=== PATIENT | female | born 1985 | race African-American/Black ===

== ENCOUNTER 2017-04-10 08:15 | Emergency (ER) | payer BC, SELFPAY ==
[2017-04-10 10:02] LABS: Bilirubin Small (Negative); Blood, Urine Negative (Negative); Clarity CLEAR (Clear); Glucose, Urine (Dipstick) Negative (Negative); Leukocyte Negative (Negative); Nitrite Negative (Negative); Protein, Urine (Dipstick) Negative (Neg-Trace); Specific Gravity, Urine 1.034 (1.002-1.036); Urobilinogen 0.2 mg/dL (0.2-1.0)
[2017-04-10 10:08] LABS: Pregnancy Test - Urine (BHCG) Negative (Negative); Pregu Control Background? CLEAR/WHITE (CLR/WHITE); Pregu Control Bar Appear? YES (CONTROL BAR); Specific Gravity 1.034 (1.002-1.036)
== END 2017-04-10 10:54 | disposition home or self-care (01) ==
LOC: ERS 08:15
DX: N93.8 Other specified abnormal uterine and vaginal bleeding (principal); F32.9 Major depressive disorder, single episode, unspecified; F17.210 Nicotine dependence, cigarettes, uncomplicated
CPT/HCPCS: 81003; 81025; 87086; 99406

== ENCOUNTER 2018-01-11 16:13 | Emergency (ER) | payer SELFPAY ==
[~2018-01-11 16:13] MED LIST: ISOVUE-370 76%-LOCM 1 ML ONE; Iopamidol 370 76% 50 ML VIAL FS ONE
[2018-01-11 16:35] LABS: Bilirubin Negative (Negative); Blood, Urine Negative (Negative); Clarity CLEAR (Clear); Glucose, Urine (Dipstick) Negative (Negative); Leukocyte Trace (Negative); Nitrite Negative (Negative); Protein, Urine (Dipstick) Negative (Neg-Trace); Specific Gravity, Urine 1.014 (1.002-1.036); Urobilinogen 0.2 mg/dL (0.2-1.0); pH, Urine 7.5 (5.0-9.0)
[2018-01-11 16:37] LABS: Pregnancy Test - Urine (BHCG) Negative (Negative); Pregu Control Background? CLEAR/WHITE (CLR/WHITE); Pregu Control Bar Appear? YES (CONTROL BAR); Specific Gravity 1.014 (1.002-1.036)
[2018-01-11 16:40] LABS: Bacteria/HPF None Seen HPF (None Seen); Hyaline Casts/LPF 0-3 HYALINE CAST LPF (0-3 Hyaline); RBC/HPF 0-3 HPF (0-3); Squamous Epithelial None Seen HPF (0-3)
[2018-01-11 16:40] LABS: #Basophils 0.1 thou/uL (0.0-0.2); #Eosinphils 0.1 thou/uL (0.0-0.7); #Lymphocytes 3.3 thou/uL (1.20-3.40); #Monocytes 0.6 thou/uL (0.11-0.59); #Neutrophils 3.7 thou/uL (1.40-6.50); %Basophils 1.5 % (0.0-1.0); %Eosinophils 1.8 % (0.0-10.0); %Lymphocytes 41.9 % (21.0-51.0); %Monocytes 7.6 % (0.0-10.0); %Neutrophils 47.3 % (42.0-75.0); Hemoglobin 13.3 g/dL (12.0-16.0); Mean Corpuscular HGB CONC 33.2 g/dL (32.0-36.0); Mean Corpuscular Hemoglobin 31.4 pg (27.0-31.0); Mean Corpuscular Volume 94.7 fL (78.0-98.0); Mean Platelet Volume 8.1 fL (7.4-10.4); Platelet Count 264 thou/uL (130-400); RBC Distribution Width 11.9 % (11.5-14.5); Red Blood Cell (RBC) Count 4.21 mill/uL (4.20-5.40); White Blood Cell (WBC) Count 7.8 thou/uL (4.8-10.8)
[2018-01-11 17:05] LABS: ALT (SGPT) 11 U/L (8-55); AST (SGOT) 12 U/L (5-34); Albumin 4.2 g/dL (3.5-5.0); Alkaline Phosphatase 69 U/L (40-150); Anion Gap 7 mmol/L (10-20); BUN (Urea Nitrogen) 9 mg/dL (7.0-18.7); Bilirubin, Total 0.4 mg/dL (0.2-1.2); Calc. Creatinine Clearance 0 mL/min (70-130); Calcium 9.3 mg/dL (7.8-10.44); Carbon Dioxide 29 mmol/L (22-29); Chloride 106 mmol/L (98-107); Estimated GFR-MDRD Greater than 90; Globulin 2.7 g/dL (2.4-3.5); Glucose 93 mg/dL (70-105); Lipase 41 U/L (8-78); Potassium 4.2 mmol/L (3.5-5.1); Protein, Total 6.9 g/dL (6.0-8.3); Sodium 138 mmol/L (136-145)
[2018-01-11] MEDS ORDERED: Morphine 4 MG/ML VIAL ONE (18:56)
[2018-01-11] MEDS ORDERED: Ondansetron HCl/PF 4 MG/2 ML Vial ONE (18:56)
--- NOTE | 2018-01-11 20:19 | CT ---
CT ABDOMEN WITH CONTRAST CT PELVIS WITH CONTRAST 01/11/18 HISTORY: Paraumbilical abdominal pain radiating to the right lower quadrant times one week. Nausea, vomiting and diarrhea. COMPARISON: None. FINDINGS: ABDOMEN CT: Lung bases are clear. Normal heart size. No pericardial effusion. The descending thoracic aorta and a bdominal aorta have normal caliber. No periaortic fat stranding. The liver, spleen pancreas and adrenal glands have appropriate enhancement. Surgically absent gallbladder. No gastrohepatic, retrocrural, or periportal lymphadenopathy. Symmetric enhancement of the kidneys. Bilaterally, no obstructive uropathy. Gastric mucosa, duodenum and multiple normal caliber small bowel loops are identified. Ileocecal junc tion is normal. Normal caliber contrast filled appendix. Contrast and fecal material predominantly in the right hemicolon. Mid to distal transverse colon, left hemicolon do not demonstrate any obvious a bnormality. Occasional diverticulum is noted. No obvious inflammatory change. Limited evaluation of t he mucosa due to lack of inadequate distention. No mesenteric mass, lymphadenopathy, free air or free fluid. PELVIC CT: There are asymmetrically increased vessels in the left adnexa. Correlate for left ovarian venous puneet estion. The left and right ovaries have an overall symmetric attenuation. The uterus is unremarkable. No significant free fluid in the pelvis. Urinary bladder is unremarkable. No lytic or blastic lesions in the osseous structures. IMPRESSION: 1. Normal caliber appendix. 2. Asymmetric prominent veins in the left adnexa, associated with left ovarian vein. Correlate f or venous congestion syndrome. Grossly the left and right ovary have symmetric attenuation. POS: [facility]
--- NOTE | 2018-01-11 22:19 | ULT ---
TRANSABDOMINAL AND TRANSVAGINAL PELVIC ULTRASOUND: 01/11/18 INDICATION: History of pelvic pain. TECHNIQUE: Barros scale, color doppler vascular duplex with spectral analysis was performed. Comparisons are made with the CT of the abdomen and pelvis dated 01/11/18. FINDINGS: Uterus measures 7.2 x 3.3 x 5.6 cm. The endometrial stripe measures 5.3 mm. There are prominent parau terine varicosities. The right ovary measures 3.2 x 1.9 x 2 cm. There is a 1.3 cm cyst within the right ovary. There is no rmal flow to the right ovary. Left ovary measures 2.5 x 2.2 x 2.2 cm. There is a 1.6 cm cyst within the left ovary. There is normal flow to the left ovary. There is mild free fluid in the pelvis. IMPRESSION: 1. Slight prominence of the parauterine vessels which can be seen with entities such as pelvic c ongestion syndrome. 2. Bilateral follicular cysts. 3. Mild free fluid in the pelvis. POS: [facility]
== END 2018-01-11 22:23 | disposition home or self-care (01) ==
LOC: ERS 16:13
DX: N94.89 Other specified conditions associated with female genital organs and menstrual cycle (principal); Z71.6 Tobacco abuse counseling; F32.9 Major depressive disorder, single episode, unspecified; F17.210 Nicotine dependence, cigarettes, uncomplicated
CPT/HCPCS: 36415; 74177; 76856; 80053; 81003; 81015; 81025; 83690; 85025; 87086; 96361; 96374; 96375; 99406; J2270; J2405

== ENCOUNTER 2018-02-18 19:07 | Emergency (ER) | payer SELFPAY ==
[2018-02-18 20:26] LABS: #Basophils 0.1 thou/uL (0.0-0.2); #Eosinphils 0.2 thou/uL (0.0-0.7); #Lymphocytes 4.1 thou/uL (1.20-3.40); #Monocytes 0.8 thou/uL (0.11-0.59); #Neutrophils 4.4 thou/uL (1.40-6.50); %Basophils 1.5 % (0.0-1.0); %Eosinophils 2.1 % (0.0-10.0); %Lymphocytes 42.3 % (21.0-51.0); %Monocytes 8.1 % (0.0-10.0); %Neutrophils 46.1 % (42.0-75.0); Hemoglobin 14.2 g/dL (12.0-16.0); Mean Corpuscular HGB CONC 33.7 g/dL (32.0-36.0); Mean Corpuscular Hemoglobin 31.5 pg (27.0-31.0); Mean Corpuscular Volume 93.5 fL (78.0-98.0); Mean Platelet Volume 8.2 fL (7.4-10.4); Platelet Count 279 thou/uL (130-400); RBC Distribution Width 12.3 % (11.5-14.5); Red Blood Cell (RBC) Count 4.51 mill/uL (4.20-5.40); White Blood Cell (WBC) Count 9.6 thou/uL (4.8-10.8)
--- NOTE | 2018-02-18 20:45 | RAD ---
FRONTAL RADIOGRAPH CHEST: 02/18/18 COMPARISON: None. HISTORY: Right sided rib pain radiating to the right arm with right arm numbness. FINDINGS: There is no pneumothorax, pleural fluid, focal consolidation, or alveolar edema. Heart and mediastina l contours within normal limits. IMPRESSION: No acute findings. POS: [facility]
[2018-02-18 20:46] LABS: ALT (SGPT) 17 U/L (8-55); AST (SGOT) 14 U/L (5-34); Albumin 4.5 g/dL (3.5-5.0); Alkaline Phosphatase 78 U/L (40-150); Anion Gap 12 mmol/L (10-20); BUN (Urea Nitrogen) 9 mg/dL (7.0-18.7); Bilirubin, Total 0.3 mg/dL (0.2-1.2); Calc. Creatinine Clearance 0 mL/min (70-130); Calcium 9.6 mg/dL (7.8-10.44); Carbon Dioxide 25 mmol/L (22-29); Chloride 105 mmol/L (98-107); Estimated GFR-MDRD Greater than 90; Globulin 3.2 g/dL (2.4-3.5); Glucose 74 mg/dL (70-105); Protein, Total 7.7 g/dL (6.0-8.3); Sodium 138 mmol/L (136-145)
[2018-02-18 22:00] LABS: Bilirubin Negative (Negative); Blood, Urine Negative (Negative); Clarity CLEAR (Clear); Glucose, Urine (Dipstick) Negative (Negative); Leukocyte Small (Negative); Nitrite Negative (Negative); Protein, Urine (Dipstick) Negative (Neg-Trace); Specific Gravity, Urine 1.016 (1.002-1.036); Urobilinogen 0.2 mg/dL (0.2-1.0)
[2018-02-18 22:05] LABS: Pathc Cast-AUWi Flag 0.14 (0-2.49)
[2018-02-18 22:08] LABS: Pregnancy Test - Urine (BHCG) Negative (Negative); Pregu Control Background? CLEAR/WHITE (CLR/WHITE); Pregu Control Bar Appear? YES (CONTROL BAR); Specific Gravity 1.016 (1.002-1.036)
[2018-02-18 22:17] LABS: Bacteria/HPF None Seen HPF (None Seen); Hyaline Casts/LPF 0-3 HYALINE CAST LPF (0-3 Hyaline); RBC/HPF 0-3 HPF (0-3); Squamous Epithelial 0-3 HPF (0-3); WBC/HPF 0-3 HPF (0-3)
== END 2018-02-18 22:49 | disposition home or self-care (01) ==
LOC: ERS 19:07
DX: M79.10 Myalgia, unspecified site (principal); R59.0 Localized enlarged lymph nodes; B34.9 Viral infection, unspecified; D64.9 Anemia, unspecified; F32.9 Major depressive disorder, single episode, unspecified; F17.210 Nicotine dependence, cigarettes, uncomplicated
CPT/HCPCS: 36415; 71045; 80053; 81003; 81015; 81025; 85025

== ENCOUNTER 2018-07-01 20:33 | Emergency (ER) | payer SELFPAY ==
[2018-07-01 22:00] LABS: Bilirubin Negative (Negative); Blood, Urine Negative (Negative); Clarity CLEAR (Clear); Glucose, Urine (Dipstick) Negative (Negative); Leukocyte Small (Negative); Nitrite Negative (Negative); Protein, Urine (Dipstick) Negative (Neg-Trace); Specific Gravity, Urine 1.027 (1.002-1.036)
[2018-07-01 22:01] LABS: #Basophils 0.1 thou/uL (0.0-0.2); #Lymphocytes 3.1 thou/uL (1.20-3.40); #Monocytes 1.1 thou/uL (0.11-0.59); %Basophils 0.9 % (0.0-1.0); %Eosinophils 0.4 % (0.0-10.0); %Lymphocytes 25.3 % (21.0-51.0); %Monocytes 8.6 % (0.0-10.0); %Neutrophils 64.8 % (42.0-75.0); Hemoglobin 12.2 g/dL (12.0-16.0); Mean Corpuscular HGB CONC 33.6 g/dL (32.0-36.0); Mean Corpuscular Hemoglobin 31.3 pg (27.0-31.0); Mean Corpuscular Volume 93.2 fL (78.0-98.0); Mean Platelet Volume 8.2 fL (7.4-10.4); Platelet Count 239 thou/uL (130-400); RBC Distribution Width 11.8 % (11.5-14.5); White Blood Cell (WBC) Count 12.4 thou/uL (4.8-10.8)
[2018-07-01 22:04] LABS: Bacteria/HPF None Seen HPF (None Seen); Pathc Cast-AUWi Flag 0.27 (0-2.49); Squamous Epithelial 0-3 HPF (0-3); WBC/HPF 21-50 HPF (0-3)
[2018-07-01 22:06] LABS: Pregnancy Test - Urine (BHCG) POSITIVE (Negative); Pregu Control Background? CLEAR/WHITE (CLR/WHITE); Pregu Control Bar Appear? YES (CONTROL BAR); Specific Gravity 1.027 (1.002-1.036)
[2018-07-01 22:17] LABS: Hyaline Casts/LPF NONE SEEN LPF (0-3 Hyaline)
[2018-07-01 22:22] LABS: ALT (SGPT) 12 U/L (8-55); AST (SGOT) 13 U/L (5-34); Albumin 4.3 g/dL (3.5-5.0); Alkaline Phosphatase 64 U/L (40-150); Anion Gap 11 mmol/L (10-20); BUN (Urea Nitrogen) 6 mg/dL (7.0-18.7); Bilirubin, Total 0.4 mg/dL (0.2-1.2); Calc. Creatinine Clearance 0 mL/min (70-130); Calcium 9.5 mg/dL (7.8-10.44); Carbon Dioxide 25 mmol/L (22-29); Chloride 104 mmol/L (98-107); Estimated GFR-MDRD Greater than 90; Globulin 2.7 g/dL (2.4-3.5); Glucose 80 mg/dL (70-105); Lipase 16 U/L (8-78); Potassium 3.5 mmol/L (3.5-5.1); Sodium 136 mmol/L (136-145)
[2018-07-02] MEDS ORDERED: Ondansetron ODT 8 MG TAB ONE (01:45)
--- NOTE | 2018-07-02 07:34 | ULT ---
PRELIMINARY REPORT: US First Trimester, Transabdominal EXAM DATE/TIME: 07/02/2018 12:05 AM CLINICAL HISTORY: 32 years old, female; Pain and signs and symptoms; Lmp or gestational age (in weeks): 7w0d; Antepartum complications; Other: Rlq pain while vomiting; complicated by abdominal or pelvic pain; Right lower quadrant; First trimester; ; Patient HX: Rlq pain while vomiting, hematemesis, diarrhea, hot flashes, chills TECHNIQUE: Imaging protocol: Real-time transabdominal obstetrical ultrasound of the maternal pelvis and a first trimester , less than 14 weeks 0 days, with image documentation. COMPARISON: No relevant prior studies available. FINDINGS: GESTATION: Gestation: Single intrauterine gestational sac with pole and a yolk sac. Heart rate: The heart rate 124 beats per minute. Placenta: Unremarkable. No subchorionic bleed. Amniotic fluid: Amniotic and chorionic fluid are normal for gestational age. BIOMETRY: Estimated gestational age: [place]-rump length is 8 mm consistent with 6 weeks 5 days gestational age. Estimated due date: WINNIE is 02/18/2019 MATERNAL: Uterus: Unremarkable. Cervix: Unremarkable. Ovaries: Right ovary measures 2.2 x 1.7 x 2.3 cm and the left or right measures 2.9 x 2.1 x 1.9 cm. . Intraperitoneal: No intraperitoneal free fluid. Appendix: The appendix was not visualized. IMPRESSION: Early live IUP with no complication. Thank you for allowing us to participate in the care of your patient. Dictated and Authenticated by: Oksana Hoffman MD 07/02/2018 1:28 AM Central Time ([place] & [place]) FINAL REPORT US Pelvic W Doppler History: [Pelvic pain] Comparison: Pelvic ultrasound 2018 Findings: There is a single viable intrauterine . Impression: Findings and impression are concordant with the preliminary report. Transcribed Date/Time: 07/02/2018 8:30 AM
== END 2018-07-02 01:55 | disposition home or self-care (01) ==
LOC: ERS 20:33
DX: O21.9 Vomiting of pregnancy, unspecified (principal); O99.89 Other specified diseases and conditions complicating pregnancy, childbirth and the puerperium; O99.341 Other mental disorders complicating pregnancy, first trimester; F32.9 Major depressive disorder, single episode, unspecified; Z87.891 Personal history of nicotine dependence; Z3A.01 Less than 8 weeks gestation of pregnancy
CPT/HCPCS: 36415; 76856; 80053; 81003; 81015; 81025; 83690; 84702; 85025; 87086; 93976

== ENCOUNTER 2018-09-19 00:13 | Emergency (ER) | payer MEDICAID ==
[2018-09-19] MEDS ORDERED: Metoclopramide HCl 10 MG/2 ML VIAL ONE (00:37)
[2018-09-19] MEDS ORDERED: Acetaminophen 500 MG TAB ONE (00:37)
[2018-09-19] MEDS ORDERED: diphenhydrAMINE 50 MG/ML VIAL ONE (00:37)
== END 2018-09-19 02:21 | disposition home or self-care (01) ==
LOC: ERS 00:13
DX: O99.352 Diseases of the nervous system complicating pregnancy, second trimester (principal); G43.909 Migraine, unspecified, not intractable, without status migrainosus; O99.342 Other mental disorders complicating pregnancy, second trimester; F32.9 Major depressive disorder, single episode, unspecified; O99.012 Anemia complicating pregnancy, second trimester; Z3A.18 18 weeks gestation of pregnancy; Z87.891 Personal history of nicotine dependence
CPT/HCPCS: 96361; 96365; 96375; J1200; J2765

== ENCOUNTER 2018-10-16 17:48 | Day surgery (SDC) | payer MEDICAID, OTHER ==
[2018-10-16 18:22] VITALS: BP 126/68; TEMP 98.7; BMI 28.9
[2018-10-16 19:50] LABS: ALT (SGPT) 16 U/L (8-55); AST (SGOT) 13 U/L (5-34); Albumin 3.5 g/dL (3.5-5.0); Alkaline Phosphatase 76 U/L (40-150); Anion Gap 11 mmol/L (10-20); BUN (Urea Nitrogen) 5 mg/dL (7.0-18.7); Bilirubin, Total 0.2 mg/dL (0.2-1.2); Calc. Creatinine Clearance 197 mL/min (70-130); Calcium 9.1 mg/dL (7.8-10.44); Carbon Dioxide 24 mmol/L (22-29); Chloride 107 mmol/L (98-107); Estimated GFR-MDRD Greater than 90; Globulin 2.8 g/dL (2.4-3.5); Glucose 62 mg/dL (70-105); Potassium 3.7 mmol/L (3.5-5.1); Protein, Total 6.3 g/dL (6.0-8.3); Sodium 138 mmol/L (136-145)
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
[2018-10-16] MEDS ORDERED: hydrALAZINE 20 MG/ML VIAL SLOW IVP PRN (20:16)
== END 2018-10-16 20:18 | disposition home or self-care (01) ==
LOC: L&D/OP 17:48
PROVIDERS: ATTEND Obstetrics & Gynecology
DX: O99.89 Other specified diseases and conditions complicating pregnancy, childbirth and the puerperium (principal); R10.11 Right upper quadrant pain; R20.2 Paresthesia of skin; R06.02 Shortness of breath; R42 Dizziness and giddiness; Z87.891 Personal history of nicotine dependence; Z3A.21 21 weeks gestation of pregnancy; W17.89XA Other fall from one level to another, initial encounter
CPT/HCPCS: 36415; 80053; 99282

== ENCOUNTER 2018-12-20 14:56 | Day surgery (SDC) | payer OTHER ==
[2018-12-20 15:41] VITALS: BMI 31.3
[2018-12-20] MEDS ORDERED: hydrALAZINE 20 MG/ML VIAL SLOW IVP PRN (17:47)
[2018-12-20 18:27] LABS: Bacteria/HPF None Seen HPF (None Seen); Bilirubin Negative (Negative); Blood, Urine Negative (Negative); Clarity Clear (Clear); Glucose, Urine (Dipstick) Normal (Negative); Leukocyte Negative Leu/uL (Negative); Nitrite Negative (Negative); Protein, Urine (Dipstick) Negative (Neg-Trace); RBC/HPF None Seen HPF (0-3); Squamous Epithelial 0-3 HPF (0-3); Urobilinogen Normal mg/dL (Less than 2); WBC/HPF 0-3 HPF (0-3)
[2018-12-20 18:55] LABS: FFN Internal QC Analyzer PASS (PASS); FFN Internal QC Cassette PASS (PASS); Fetal Fibronectin Negative (Negative)
--- NOTE | 2018-12-21 00:24 | PRG ---
DATE OF SERVICE: 12/20/2018 PRIMARY OB: Jenny Morales DO CHIEF COMPLAINT: Pelvic pains. HISTORY OF PRESENT ILLNESS: The patient is a 32-year-old, G7, P4 female with an intrauterine at 31 weeks and a day, who is presenting to Labor and Delivery with vague pelvic pains, back pain and feeling a bit under the weather. She reports nausea, pelvic pain associated with movement activity, crampy menstrual-like pain that she has been having since yesterday. She denies leakage of fluid or vaginal bleeding. She denies urinary urgency or frequency. She denies intercourse in the last several days. She denies any recent illness, fever, any recent headaches, or chest pain. She denies any new rashes, though she reports swelling in her armpits bilaterally with leakage of fluid on her left side. PAST MEDICAL HISTORY: Migraines, anxiety and depression. PAST SURGICAL HISTORY: Cholecystectomy. ALLERGIES: NO KNOWN DRUG ALLERGIES. SOCIAL HISTORY: Denies drug or alcohol use. Positive for tobacco use. OB LABS: Unavailable at time of dictation. REVIEW OF SYSTEMS: Per HPI. PHYSICAL EXAMINATION: VITAL SIGNS: Blood pressure 123/75, heart rate of 76, respiratory rate of 18, temperature 98.6. GENERAL: She appears to be in no acute distress. She is alert, oriented, cooperative, and pleasant to interact with. HEAD: Normocephalic, atraumatic. LUNGS: Clear to auscultation bilaterally. HEART: Has regular rate and rhythm. ABDOMEN: Gravid. She does have some tenderness to palpation with deviation of the uterus into her lower pelvis. EXTREMITIES: Nontender, nonedematous. GENITALIA: Vulva is without masses, lesions, or erythema. Vagina is moist. Cervix is visibly closed. fibronectin and VPIII are collected. Inspection of her axilla, she has some palpable swelling. There is no erythema. She has some warmth to the area, but nothing could be expressed. No pustular or ulcerative lesions. On the right side, the patient does have a small, a centimeter to centimeter and a half sized hypermelanotic area reminiscent of areola. The patient has no other findings like this along the mammary line. Cervical exam, cervix is closed, thick and high. heart tracing shows a baseline in the 140s with moderate long-term variability, positive 15 x 15 accelerations, no decelerations. No contractions visible on the tocometer. LABORATORY DATA: fibronectin is negative. Urinalysis negative for protein, bacteria, leukocyte esterase, or nitrite. VPIII negative for Trichomonas, Gardnerella, and yeast/Luann. ASSESSMENT AND PLAN: The patient is a 32-year-old female presenting with multiple complaints. No evidence of labor at this time, or urinary tract infection or vaginal infection. Of note, the patient does have a history of Trichomonas in October of this year that looks to be cleared. The patient's swelling in her axilla did not show any signs of infection. This may be ectopic mammary tissue that is responding and reacting to hormonal changes secondary to the . The patient has been counseled how to take Tylenol on a regular basis for better pain relief. Fetus has a reactive NST. The patient has been given labor precautions and has been instructed to follow up with her primary OB as scheduled, which will be in the middle of this next week. Job ID: [id number]
== END 2018-12-20 19:35 | disposition home or self-care (01) ==
LOC: L&D/OP 14:56
PROVIDERS: ATTEND Obstetrics & Gynecology
DX: O99.89 Other specified diseases and conditions complicating pregnancy, childbirth and the puerperium (principal); R10.2 Pelvic and perineal pain; M54.9 Dorsalgia, unspecified; O99.343 Other mental disorders complicating pregnancy, third trimester; F41.9 Anxiety disorder, unspecified; F32.9 Major depressive disorder, single episode, unspecified; O99.353 Diseases of the nervous system complicating pregnancy, third trimester; G43.909 Migraine, unspecified, not intractable, without status migrainosus; Z3A.31 31 weeks gestation of pregnancy; Z79.899 Other long term (current) drug therapy
CPT/HCPCS: 51701; 81001; 82731; 87480; 87510; 87660; 99285

== ENCOUNTER 2019-02-04 18:22 | Day surgery (SDC) | payer OTHER ==
[2019-02-04 19:32] VITALS: BP 130/79; TEMP 99.2; BMI 32.6
[2019-02-04] MEDS ORDERED: hydrALAZINE 20 MG/ML VIAL SLOW IVP PRN (19:44)
--- NOTE | 2019-02-04 20:07 | HP ---
LOCATION: Antepartum bed 2. TIME OF EVALUATION: 1945. REASON FOR EVALUATION: Contractions at early term. HISTORY OF PRESENT ILLNESS: In brief, this is a 33-year-old, G7, P4, at 37 weeks and 5 days with gestational diabetes (A2), on metformin, here for contractions about every 3 to 4 minutes. She denies rupture of membranes or vaginal bleeding. She denies any other symptoms. REVIEW OF SYSTEMS: Complete review of systems was checked and is otherwise negative unless specified in the HPI. PAST MEDICAL HISTORY: Negative. PAST OBSTETRICAL HISTORY: Vaginal births in the past and she has A2 diabetes this . MEDICATIONS: Metformin. PAST SURGICAL HISTORY: Cholecystectomy. ALLERGIES: NONE. SOCIAL HISTORY: Noncontributory. PHYSICAL EXAMINATION: VITAL SIGNS: Her blood pressure is 150/79. She is afebrile and non-tachycardic. Respirations are 18 and nonlabored. GENERAL: Clinically, she is in no acute distress, but she may be having some contraction discomfort. ABDOMEN: Soft, nontender and size appropriate. PELVIC: Cervical exam reveals a cervix of 2 cm dilated, 50% effaced, -3 station with no evidence of bleeding or ruptured membranes. On monitor, baseline is in the 130s with moderate variability, but she does have some variable decels with contractions, placing her at category 2. ASSESSMENT: This is an early term patient who is a G7, P4, at 37 weeks and 5 days with latent labor. PLAN: 1. Due to the category 2 strip, we will continue to monitor for now. 2. 2-hour observation. 3. If she is admitted, we will do periodic D-sticks. 4. No evidence of hypertension at this time. Job ID: [id number]
[2019-02-04] MEDS ORDERED: FLU VACC QS2019-20(6MOS UP)/PF 60 MCG/0.5 ML SYRINGE IM ONE (21:00)
--- NOTE | 2019-02-04 21:34 | PDOC.EVN ---
Event Note - Event Note Event Note: recheck: Strip reviewed..ok for DC CX unchanged at 2cm As still early term...ok for outpatient care
== END 2019-02-04 21:50 | disposition home or self-care (01) ==
LOC: L&D/OP 18:22
PROVIDERS: ATTEND Obstetrics & Gynecology
DX: O47.1 False labor at or after 37 completed weeks of gestation (principal); O24.415 Gestational diabetes mellitus in pregnancy, controlled by oral hypoglycemic drugs; Z3A.37 37 weeks gestation of pregnancy; Z79.84 Long term (current) use of oral hypoglycemic drugs

== ENCOUNTER 2019-02-10 19:45 | Inpatient (IN) | payer OTHER ==
[~2019-02-10 19:45] MED LIST changes: -ISOVUE-370 76%-LOCM 1 ML ONE; -Iopamidol 370 76% 50 ML VIAL FS ONE; +hydrALAZINE 20 MG/ML VIAL SLOW IVP PRN
--- NOTE | 2019-02-10 20:49 | PDOC.LDHP ---
Labor and Delivery H&P Chief complaint: scheduled induction HPI: ORIGINAL NOTE STARTED ON 02/10/19, HOWEVER, ADMISSION WAS DELAYED UNTIL 33 yo @ 38w6d by 19 week sono who presents for IOL due to A2DM on Metformin. Pt has also had trichomonas treated during this and previously had + UDS for THC. Current gestational age (weeks): 38 Due date: 02/20/19 Dating criteria: second trimester ultrasound Grav: 7 Para: 4 OB History Details: 4 SVDs Current complications: gestational diabetes Abnormal US findings: No Past Medical History: Anemia Current medications: pre- vitamins, iron Previous surgical history: cholecystectomy Allergies/Adverse Reactions: Allergies Allergy/AdvReac Type Severity Reaction Status Date / Time No Known Allergies Allergy Verified 02/04/19 19:18 Social history: drug use - Physical Exam Vital signs reviewed and normal: yes General: NAD Heart: RRR Lungs: nonlabored breathing Abdomen: gravid Extremeties: no edema FHT: category 1 (130s, mod logan, +accels, no decels) [place] contractions every: pt feels q2-4 min, not assessing well on toco- adjusted - Vaginal Exam cm dilated: 3 (cephalic, AROM-clear) Effacement: 50% Station: -2 - OB Labs Blood type: B RH: positive Antibody Screen: negative HIV: negative RPR: negative HEPSAg: negative 1 hour GCT: positive 3 hour GTT: positive GBS: negative Urine drug screen: positive (Repeat neg) Rubella: immune - Assessment 38w6d IUP IOL A2DM Obesity Trichomonas, treated Anemia - Plan Plan: admit to L&D, informed consent obtained, anesthesia consult for pain management -: On pitocin for IOL Monitor BG
[2019-02-12] MEDS ORDERED: Promethazine HCl 25 MG/ML VIAL IM PRN ×2 (06:17→08:47)
[2019-02-12] MEDS ORDERED: HYDROcodone/Acetaminophen 5/325 mg Tablet PO PRN (06:17)
[2019-02-12] MEDS ORDERED: NS w/ Oxytocin 10 units 500 ML IV SCH (06:17)
[2019-02-12] MEDS ORDERED: Diphenoxylate HCl/Atropine Tablet PO PRN (06:17)
[2019-02-12] MEDS ORDERED: Lidocaine 1% (PF) 30 ML VIAL SC PRN (06:17)
[2019-02-12] MEDS ORDERED: Ibuprofen 800 MG TAB PO PRN (06:17)
[2019-02-12] MEDS ORDERED: hydrALAZINE 20 MG/ML VIAL SLOW IVP PRN ×2 (06:17→15:36)
[2019-02-12] MEDS ORDERED: Butorphanol Tartrate 1 MG/ML VIAL SLOW IVP PRN (06:17)
[2019-02-12] MEDS ORDERED: Acetaminophen 500 MG TAB PO PRN (06:17)
[2019-02-12] MEDS ORDERED: NS / Oxytocin 40 units/1000ml 1,000 ML IV PRN (06:17)
[2019-02-12] MEDS ORDERED: Ondansetron PF 4 MG/2 ML Vial IVP PRN ×2 (06:17→08:47)
[2019-02-12] MEDS ORDERED: Methylergonovine 0.2 MG/ML VIAL IM PRN ×2 (06:17→15:36)
[2019-02-12] MEDS ORDERED: Misoprostol 200 MCG TAB PR PRN (06:17)
[2019-02-12] MEDS ORDERED: Carboprost 250 MCG/ML AMP IM PRN (06:17)
[2019-02-12 06:32] LABS: Hemoglobin 10.4 g/dL (12.0-16.0); Mean Corpuscular Hemoglobin 29.4 pg (27.0-31.0); Mean Corpuscular Volume 86.4 fL (78.0-98.0); Mean Platelet Volume 9.2 fL (7.4-10.4); Platelet Count 298 thou/uL (130-400); RBC Distribution Width 12.4 % (11.5-14.5); Red Blood Cell (RBC) Count 3.54 mill/uL (4.20-5.40); White Blood Cell (WBC) Count 12.2 thou/uL (4.8-10.8)
[2019-02-12] MEDS: Lactated Ringer's 1,000 ML IV SCH (06:58)
[2019-02-12 07:08] LABS: HBSAg Index 0.15 S/CO (0-0.99); HIV (1/2) Antibody/Antigen Non-Reactive (NonReactive); HIV 1/2 INDEX 0.06 S/CO (<1.00); Hep B Surf Ag Non-Reactive S/CO (NonReactive); Syphilis Antibody Nonreactive (Nonreactive); Syphilis Antibody Index 0.06 S/CO (<1.00 Non-Reactive)
[2019-02-12 07:58] LABS: Amphetamine Not Detected (NotDetected); Barbiturates Screen Not Detected (NotDetected); Benzodiazepine Screen Not Detected (NotDetected); Cocaine Metabolite Screen Not Detected (NotDetected); Medtox Reader # READER 4; Methadone Not Detected (NotDetected); Methamphetamine Not Detected (NotDetected); Opiate Screen Not Detected (NotDetected); Oxycodone Screen Not Detected (NotDetected); Phencyclidine (PCP) Not Detected (NotDetected); THC/Cannabinoid Screen Not Detected (NotDetected); Tricyclic Screen Not Detected (NotDetected)
[2019-02-12 07:59] LABS: Medtox Control Line Valid? VALID (VALID)
[2019-02-12] MEDS ORDERED: Fentanyl 4 mcg/Bup 0.1% Cadd 100 ML ONE (08:16)
[2019-02-12] MEDS ORDERED: Naloxone HCl 0.4 mg/ml Vial IVP PRN ×2 (08:47)
[2019-02-12] MEDS ORDERED: ePHEDrine/0.9% NaCl/PF SYRINGE 50 mg/10 ml SLOW IVP PRN (08:47)
[2019-02-12] MEDS ORDERED: Acetaminophen 325 MG TAB PO PRN (08:47)
[2019-02-12] MEDS ORDERED: Lactated Ringer's 500 ML IV PRN (08:47)
[2019-02-12] MEDS ORDERED: diphenhydrAMINE 50 MG/ML VIAL IVP PRN (08:47)
[2019-02-12] MEDS ORDERED: Fentanyl 4 mcg/Bupivacaine 0.1% Cassette 100 ML EPIDURAL SCH (09:00)
[2019-02-12] MEDS ORDERED: Communication Order-Pharmacy FS SCH (09:00)
--- NOTE | 2019-02-12 09:37 | PDOC.LDPN ---
Labor & Delivery Progress Note - Subjective Subjective: comfortable - Objective Vital signs reviewed and normal: yes General: NAD Uterine fundus: non tender Dilation: 6 Effacement: 75% Station: 0 FHT: category 2 (prolonged decel to 50s x 5 min; resolved to 140s with mod logan and + accel with stimulation ) [place] contractions every: not assessing well prior to exam- IUPC placed IUPC placed: yes FSE placed: yes Resuscitative measures: maternal oxygen, maternal IV fluids, maternal position change, other (d/c'ed pitocin ) - Assessment (1) 38 weeks gestation of Code(s): Z3A.38 - 38 WEEKS GESTATION OF Current Visit: Yes Status : Acute (2) Gestational diabetes Code(s): O24.419 - GESTATIONAL DIABETES MELLITUS IN , UNSP CONTROL Current Visit: Yes Status: Acute -: Prolonged decel due to rapid change and descent. Internals placed. Continue to monitor. Plan to restart pitocin if FHTs reassuring.
--- NOTE | 2019-02-12 09:49 | PRG ---
DATE OF SERVICE: 02/12/2019 TIME OF EVALUATION: Roughly 0920 hours until 0930 hours. LOCATION: [facility] bed 1. REASON FOR EVALUATION: I was called stat for decels down to the 60s to 70s after placement of a Frye catheter. In brief, I arrived after 50 seconds after being called to LDR 1 and found the patient to be in her left lateral position, O2 in place, and 2 nurses at bedside. By history, this patient is a G7, P4, who is in active labor and is the patient of Dr. Morales. I found no gross evidence of vaginal bleeding and at the time that I arrived, heart tones were in the 140s. I performed a vaginal exam and found her cervix to be 6 cm dilated (was 5 cm by nurse report), 90% effaced, zero station, cephalic, bag of water ruptured. Based on the nurse report after my exam, I was told that the patient went from 3 to 5 cm quickly and now with my exam being 6 cm, I suspect that the bradycardia/decel was result of quick cervical change/dilation. There has been successful intrauterine resuscitation with a baby back into the normal heart range of 140s. Dr. Morales arrived as I was about place an IUPC for better uterine contraction monitoring. Dr. Morales will place the IUPC as she has resumed care at this time. I also walked out as anesthesia was walking in to evaluate the need for C- section. Urgent has now been called off as the baby's heart tones are back to normal and there has been successful intrauterine resuscitation. Job ID: [id number] [facility]
[2019-02-12] MEDS ORDERED: Bupivacaine 0.25% HCL 30 ML VIAL ONE (13:11)
--- NOTE | 2019-02-12 14:16 | PDOC.OPDEL ---
OB Operative/Delivery Note Delivery Dr/Surgeon: Jenny Morales DO Pre-Delivery Diagnosis: medically indicated induction Procedure/Post Delivery Dx: spontaneous vaginal delivery Weeks gestation: 38 Anesthesia: epidural - Findings A Sex: male - 1 min: 9 - 5 min: 9 - Additional Findings/Plan Placenta delivered: spontaneous Repaired Obstetrical Laceration: other (small superficial posterior hymenal laceration repaired with figure of 8) Estimated blood loss: 50 cc Compilations/Other Findings: in cephalic presentation Thick meconium fluid Normal appearing placenta. Post delivery plan: routine recovery
[2019-02-12] MEDS ORDERED: NS / Oxytocin 40 units/1000ml 1,000 ML IV SCH (15:36)
[2019-02-12] MEDS ORDERED: Benzocaine-Menthol 82.5 ML CAN TOP PRN (15:36)
[2019-02-12] MEDS ORDERED: Bisacodyl 10 MG SUPP PR PRN (15:36)
[2019-02-12] MEDS ORDERED: Preparation H Ointment 28 GM TUBE PR PRN (15:36)
[2019-02-12] MEDS ORDERED: diphenhydrAMINE 25 MG CAP PO PRN (15:36)
[2019-02-12] MEDS ORDERED: Milk Of Magnesia 30 ML UDCUP PO PRN (15:36)
[2019-02-12] MEDS ORDERED: Lanolin Ointment 7 GM TUBE TOP PRN (15:36)
[2019-02-12] MEDS: Ferrous Sulfate 325 MG TAB PO SCH (17:52)
[2019-02-12] MEDS: HYDROcodone/Acetaminophen 5/325 mg Tablet PO PRN (18:18)
[2019-02-12] MEDS ORDERED: Sodium Chloride 0.9% 10 ML ONE (21:57)
[2019-02-12] MEDS: Ibuprofen 800 MG TAB PO SCH (23:22)
[2019-02-12] MEDS: Docusate Calcium (SURFAK) 240 MG CAP PO SCH (23:23)
[2019-02-13] MEDS: Lactated Ringer's 1,000 ML IV SCH (00:11)
[2019-02-13 05:03] LABS: Hemoglobin 9.6 g/dL (12.0-16.0); Mean Corpuscular HGB CONC 32.9 g/dL (32.0-36.0); Mean Corpuscular Hemoglobin 28.7 pg (27.0-31.0); Mean Corpuscular Volume 87.3 fL (78.0-98.0); Mean Platelet Volume 9.3 fL (7.4-10.4); Platelet Count 261 thou/uL (130-400); RBC Distribution Width 12.4 % (11.5-14.5); Red Blood Cell (RBC) Count 3.35 mill/uL (4.20-5.40); White Blood Cell (WBC) Count 12.9 thou/uL (4.8-10.8)
[2019-02-13] MEDS: HYDROcodone/Acetaminophen 5/325 mg Tablet PO PRN ×2 (06:39→14:19)
[2019-02-13] MEDS: Ibuprofen 800 MG TAB PO SCH ×2 (06:42→13:41)
--- NOTE | 2019-02-13 08:23 | PDOC.PP ---
Post Progress Note Post Day #: 1 Subjective: No concerns. Breast feeding. Minimal pain and lochia. PO intake tolerated: yes Flatus: yes Ambulation: yes Vital Signs (12 hours) Temp Pulse Resp BP Pulse Ox 02/13/19 07:59 99.0 F 71 16 121/64 95 02/13/19 06:49 97.7 F 69 18 133/75 02/12/19 23:30 98.3 F 75 127/69 Weight Weight 7.654 oz - Physical Examination General: NAD Cardiovascular: RRR Respiratory: non-labored breathing Abdominal: no distention, appropriately TTP Fundus firm & at: below umbilicus Extremities: negative homans (B) Neurological: no gross focal deficits Psychiatric: A&Ox3, normal affect Result Diagrams: 02/13/19 04:24 Additional Labs: Post Labs Blood Type B POSITIVE 02/12/19 06:20 Hep Bs Antigen Non-Reactive S/CO (NonReactive) 02/12/19 06:20 (1) 38 weeks gestation of Code(s): Z3A.38 - 38 WEEKS GESTATION OF Status: Resolved (2) Gestational diabetes Code(s): O24.419 - GESTATIONAL DIABETES MELLITUS IN , UNSP CONTROL Status: Resolved (3) Vaginal delivery Code(s): O80 - ENCOUNTER FOR FULL-TERM UNCOMPLICATED DELIVERY Status: Acute - Assessment/Plan PPD1 VSSAF Continue PP care, plan for d/c @ 24 hrs today if infant stable for d/c
[2019-02-13] MEDS ORDERED: Prenatal Vitamin 1 TAB PO SCH (09:00)
[2019-02-13] MEDS: Docusate Calcium (SURFAK) 240 MG CAP PO SCH (09:46)
[2019-02-13] MEDS: Ferrous Sulfate 325 MG TAB PO SCH ×2 (09:46→17:24)
[2019-02-13 13:01] VITALS: BP 120/63; TEMP 97.8
== END 2019-02-13 18:15 | disposition home or self-care (01) | DRG 807 ==
LOC: L&D 02-12 05:42 → 3SW 02-12 17:04
PROVIDERS: ADMIT Obstetrics & Gynecology; ATTEND Obstetrics & Gynecology
PROC: 10907ZC Drainage of Amniotic Fluid, Therapeutic from Products of Conception, Via Natural or Artificial Opening (ICD-10-PCS; principal; 2019-02-12)
PROC: 10E0XZZ Delivery of Products of Conception, External Approach (ICD-10-PCS; 2019-02-12)
PROC: 3E033VJ Introduction of Other Hormone into Peripheral Vein, Percutaneous Approach (ICD-10-PCS; 2019-02-12)
PROC: 0UQKXZZ Repair Hymen, External Approach (ICD-10-PCS; 2019-02-12)
PROC: 10H07YZ Insertion of Other Device into Products of Conception, Via Natural or Artificial Opening (ICD-10-PCS; 2019-02-12)
DX: O76 Abnormality in fetal heart rate and rhythm complicating labor and delivery (principal); Z37.0 Single live birth; O99.214 Obesity complicating childbirth; E66.9 Obesity, unspecified; O99.02 Anemia complicating childbirth; D64.9 Anemia, unspecified; O77.0 Labor and delivery complicated by meconium in amniotic fluid; O70.0 First degree perineal laceration during delivery; O24.429 Gestational diabetes mellitus in childbirth, unspecified control; Z3A.38 38 weeks gestation of pregnancy
CPT/HCPCS: 36415; 36416; 51702; 80306; 85027; 86780; 86850; 86900; 86901; 87340; 87389; J2590; S0020

== ENCOUNTER 2020-02-28 10:42 | Emergency (ER) | payer OTHER ==
[2020-02-28] MEDS ORDERED: Dexamethasone 10 MG/ML VIAL ONE (12:29)
[2020-02-28] MEDS ORDERED: Ketorolac Tromethamine 30 MG/ML VIAL ONE (12:29)
[2020-02-28] MEDS ORDERED: Ondansetron ODT 4 MG TAB ONE (13:28)
[2020-02-28] MEDS ORDERED: Acetaminophen 500 MG TAB ONE (13:57)
[2020-02-28 22:34] LABS: SARS-CoV-2 MS2 Positive; SARS-CoV-2 N Gene Negative; SARS-CoV-2 S Gene Negative; SARS-CoV-2 by NAA Not Detected (NotDetected); SARS-CoV-2 orf1ab Negative
== END 2020-02-28 14:21 | disposition home or self-care (01) ==
LOC: ERS 10:42
DX: J02.9 Acute pharyngitis, unspecified (principal)
CPT/HCPCS: 87081; 87430; 87635; 96372; 99284; J1100; J1885; Q0162; U0003

== ENCOUNTER 2020-11-19 22:34 | Emergency (ER) | payer OTHER ==
[2020-11-20] MEDS ORDERED: Dexamethasone 4 MG TAB ONE ×2 (01:00→01:08)
[2020-11-20] MEDS ORDERED: predniSONE 20 MG TAB ONE (01:16)
== END 2020-11-20 00:58 | disposition home or self-care (01) ==
LOC: ERS 22:34
DX: U07.1 COVID-19 (principal); D64.9 Anemia, unspecified; E11.9 Type 2 diabetes mellitus without complications; Z87.891 Personal history of nicotine dependence
CPT/HCPCS: 71045; 94760; J7512; J8540

== ENCOUNTER 2021-11-30 17:50 | Emergency (ER) | payer OTHER, SELFPAY ==
[2021-11-30] MEDS ORDERED: Mag-Al 1200 mg/1200 mg/30 ML UDCUP ONE (18:29)
[2021-11-30] MEDS ORDERED: Pantoprazole 40 MG VIAL ONE (18:29)
[2021-11-30] MEDS ORDERED: Lidocaine Viscous Sol 2% 15 ml UD Cup ONE (18:29)
[2021-11-30] MEDS ORDERED: Morphine 4 MG/ML VIAL ONE (18:29)
[2021-11-30] MEDS ORDERED: Ondansetron PF 4 MG/2 ML Vial ONE (18:29)
[2021-11-30 18:58] LABS: #Basophils 0.1 thou/uL (0.0-0.2); #Eosinphils 0.1 thou/uL (0.0-0.7); #Lymphocytes 4.5 thou/uL (1.20-3.40); #Monocytes 1.1 thou/uL (0.11-0.59); #Neutrophils 6.2 thou/uL (1.40-6.50); %Basophils 0.8 % (0.0-1.0); %Eosinophils 1.1 % (0.0-10.0); %Lymphocytes 37.3 % (21.0-51.0); %Neutrophils 51.9 % (42.0-75.0); Hemoglobin 14.6 g/dL (12.0-16.0); Mean Corpuscular HGB CONC 33.6 g/dL (32.0-36.0); Mean Corpuscular Hemoglobin 31.5 pg (27.0-31.0); Mean Corpuscular Volume 93.7 fL (78.0-98.0); Mean Platelet Volume 8.5 fL (7.4-10.4); Platelet Count 299 thou/uL (130-400); RBC Distribution Width 12.3 % (11.5-14.5); Red Blood Cell (RBC) Count 4.65 mill/uL (4.20-5.40); White Blood Cell (WBC) Count 11.9 thou/uL (4.8-10.8)
[2021-11-30 19:03] LABS: BHCG - Serum Negative (NEGATIVE); Pregs Control Background? CLEAR/WHITE (CLR/WHITE); Pregs Control Bar Appear? YES (CONTROL BAR)
[2021-11-30 19:15] LABS: ALT (SGPT) 47 U/L (8-55); AST (SGOT) 19 U/L (5-34); Albumin 4.3 g/dL (3.5-5.0); Alkaline Phosphatase 92 U/L (40-110); Anion Gap 16 mmol/L (10-20); BUN (Urea Nitrogen) 10 mg/dL (7.0-18.7); Bilirubin, Total 0.4 mg/dL (0.2-1.2); CK (CPK) 155 U/L (29-168); Calc. Creatinine Clearance 0 mL/min (70-130); Calcium 9.2 mg/dL (7.8-10.44); Carbon Dioxide 23 mmol/L (22-29); Chloride 102 mmol/L (98-107); Estimated GFR 101; Globulin 3.2 g/dL (2.4-3.5); Glucose 93 mg/dL (70-105); Lipase 50 U/L (8-78); Potassium 3.5 mmol/L (3.5-5.1); Protein, Total 7.5 g/dL (6.0-8.3); Sodium 137 mmol/L (136-145)
[2021-11-30 20:19] LABS: Bilirubin Negative (Negative); Blood, Urine Negative (Negative); Clarity Clear (Clear); Glucose, Urine (Dipstick) Normal (Negative); Ketone, Urine Negative (Negative); Leukocyte Negative Leu/uL (Negative); Nitrite Negative (Negative); Protein, Urine (Dipstick) Negative (Neg-Trace); Specific Gravity, Urine 1.007 (1.002-1.036); Urobilinogen Normal mg/dL (Less than 2)
== END 2021-11-30 19:55 | disposition home or self-care (01) ==
LOC: ERS 17:50
DX: K29.00 Acute gastritis without bleeding (principal); Z87.891 Personal history of nicotine dependence
CPT/HCPCS: 36415; 80053; 81003; 82550; 83690; 84484; 84703; 85025; 93005; 96374; 96375; C9113; J2270; J2405

== ENCOUNTER 2024-02-21 05:34 | Emergency (ER) | payer MEDICAID, OTHER | END 2024-02-21 06:43 | disposition home or self-care (01) | LOC: ERS 05:34 | DX: Z76.0 Encounter for issue of repeat prescription (principal); M25.511 Pain in right shoulder; I10 Essential (primary) hypertension; F17.210 Nicotine dependence, cigarettes, uncomplicated; F17.290 Nicotine dependence, other tobacco product, uncomplicated | CPT/HCPCS: 99281 ==

== ENCOUNTER 2024-03-24 14:18 | Emergency (ER) | payer MEDICAID, OTHER | END 2024-03-24 16:00 | disposition home or self-care (01) | LOC: ERS 14:18 | DX: Z76.0 Encounter for issue of repeat prescription (principal); I10 Essential (primary) hypertension; F17.210 Nicotine dependence, cigarettes, uncomplicated | CPT/HCPCS: 99281 ==